=== PATIENT | female | born 1980 | race Caucasian/White ===

== ENCOUNTER 2022-07-15 15:00 | Outpatient (RCR) | payer MEDICAID, OTHER, SELFPAY ==
--- NOTE | 2022-06-17 15:17 | MHC.PT.EP ---
[facility] [place] [facility] [place] [facility] [place] [facility] [address] [phone] F: [phone] F: [phone] F: [phone] F: [phone] Physical Therapy Plan of Care Date of Evaluation: Date of Surgery: Diagnosis: segmental and somatci dysfunction of pelvic region Assessment: 41 y/o female referred to PT with segmental and somatic dysfunction of pelvic region. She reports R-sided LB/hip pain and difficulty with prolonged sitting, standing, walking, and lifting for about 3 years following vaginal of her son. She also reports some lower abdominal pain that she feels is associated with her IUD, imaging and tests r/o infection per pt. She has some LACI with coughing/ sneezing but at this time declines PFM examination therefore orthopedic exam performed. Examination shows decreased lumbar and R hip AROM, decreased R hip strength, poor coordination of breathing and movement, altered SI function, poor TrA strength, 3-finger R[place]IGH above umbilicus and impaired gait pattern. S/s consistent with SI dysfunciton and lumbar derangement with overlapping LACI (will assess PFM if pt consents in the future). Recommend PT 1x/week for 8 weeks to address impairments, implement HEP, and optimize functional mobility. Frequency and Duration: The patient will be seen 1x/week for 8 weeks Short Term Goals: 4 weeks 1. I with HEP 2. Pt will demonstrate 50% decreased in hip/lumbar pain per reports (IR 8-07/03) 3. Pt will demonstrate neutral SI function Prison Goals: 8 weeks 1. I with HEP and self management of sx 2. Demonstrate diaphragmatic breathing without cues 3. Improve R hip ER strength to 4+/5 to faciliate gait Treatment Plan: Modalities to reduce pain, spasms and effusion. Manual therapy to restore motion and function. Therapeutic exercise to improve strength and flexibility. Neuromuscular re-education for posture and balance. Therapeutic activities to return to functional activities of daily living. Electronically signed by: Please sign and return to therapist. Thank you for your referral.
== END 2022-07-20 08:51 | disposition home or self-care (01) ==
LOC: HO.PT 15:00
PROVIDERS: Visit Provider Nurse Practitioner Women's Health
DX: M99.05 Segmental and somatic dysfunction of pelvic region (principal)
CPT/HCPCS: 97014; 97110; 97112; 97140; 97162